=== PATIENT | female | born 1955 | race Caucasian/White ===

== ENCOUNTER → 2021-09-01 | Outpatient (CLI) | payer OTHER ==
[~2021-09-01] MED LIST: BRILINTA90 MG PO; ECOTRIN81 MG PO; FIORICET TAB1 EA PO; GLUCOPHAGE1000 MG PO; HABITROL 14 MG P1 EA TOP; HUMALOG MI100 UNIT/2 SQ; IMDUR ER TAB 6060 MG PO; ISORDIL TAB 2020 MG PO; JARDIANCE25 MG PO; LANTUS100 UNIT/1 SQ; LIPITOR40 MG PO; LOPRESSOR 25 MG25 MG PO; NEURONTIN 400400 MG PO; NITROSTAT0.4 MG SL; ZESTRIL2.5 MG PO; ZOLOFT100 MG PO
== END ==
LOC: KOH-I 14:31
DX: M54.9 Dorsalgia, unspecified (principal); S22.32XA Fracture of one rib, left side, initial encounter for closed fracture; M47.814 Spondylosis without myelopathy or radiculopathy, thoracic region; K59.00 Constipation, unspecified
CPT/HCPCS: 71101; 72070; 72100

== ENCOUNTER → 2022-01-13 | Day surgery (SDC) | payer OTHER ==
[~2022-01-13] VITALS: Ht 162.6 cm; Wt 69.4 kg
[~2022-01-13] MED LIST changes: +AMLODIPINE BESY10 MG PO; +CYMBALTA 30 MG30 MG PO; +ELIQUIS5 MG PO; +ENDOCET 7.5-321 EACH PO; +HYDROCODONE-AC1 EACH PO; +IBU400 MG PO; +ISOSORBIDE MONO60 MG PO; +LEVEMIR FL100 UNIT/1 SQ; +LISINOPRIL10 MG PO; +PLAVIX 75 MG TA75 MG PO; +TRULICITY4.5 MG/0.5 SQ
[2022-01-13 06:50] LABS: HEMOGLOBIN 16.1 gm/dl (12.3-15.3); RED BLOOD COUNT 5.28 M/UL (4.00-5.10); WHITE BLOOD COUNT 10.4 K/UL (4.5-11.0)
== END | disposition home or self-care (01) ==
LOC: OR 05:25
PROVIDERS: Orthopaedic Surgery
DX: S52.572A Other intraarticular fracture of lower end of left radius, initial encounter for closed fracture (principal); S52.612A Displaced fracture of left ulna styloid process, initial encounter for closed fracture; I25.2 Old myocardial infarction; E11.9 Type 2 diabetes mellitus without complications; I10 Essential (primary) hypertension; I25.10 Atherosclerotic heart disease of native coronary artery without angina pectoris; E78.5 Hyperlipidemia, unspecified; F17.210 Nicotine dependence, cigarettes, uncomplicated; W19.XXXA Unspecified fall, initial encounter; Z95.5 Presence of coronary angioplasty implant and graft; Z79.01 Long term (current) use of anticoagulants
CPT/HCPCS: 71045; 73100; 76000; 80048; 82962; 83036; 85027; 93005; C1713; J0690; J1100; J1885; J2001; J2250; J2405; J2704; J2795; J3010